=== PATIENT | male | born 1980 | race Caucasian/White ===

== ENCOUNTER 2023-01-21 10:32 | Emergency (ER) | payer OTHER ==
[~2023-01-21] VITALS: Ht 177.8 cm; Wt 170.1 kg
[2023-01-21] MEDS ORDERED: CEPHALEXIN500 M1 PO (11:44)
== END 2023-01-21 12:12 | disposition home or self-care (01) ==
LOC: ED 10:32
DX: S61.200A Unspecified open wound of right index finger without damage to nail, initial encounter (principal); W27.0XXA Contact with workbench tool, initial encounter; Y93.89 Activity, other specified; Y92.89 Other specified places as the place of occurrence of the external cause; Y99.0 Civilian activity done for income or pay

== ENCOUNTER 2024-07-20 11:26 | Emergency (ER) | payer BC ==
[~2024-07-20] VITALS: Ht 180.3 cm; Wt 164.7 kg
[~2024-07-20 11:26] MED LIST: CEPHALEXIN500 M1 PO
[2024-07-20] MEDS ORDERED: Labetalol Hydrochloride 20 MG/4 ML SYR IV ONE (12:15)
[2024-07-20] MEDS ORDERED: SODIUM CHLORIDE 0.9% 1,000 ML IV ONE (12:15)
[2024-07-20 12:32] LABS: BASO % 0.3 % (0.0-1.0); EOS # 0.5 10*3/uL (0.0-0.4); EOS % 3.9 % (1.0-4.0); HEMATOCRIT 46.6 % (42.0-52.0); MEAN CORPUSCULAR HGB 27.4 pg (27.0-31.0); MEAN CORPUSCULAR HGB CONC 32.2 g/dl (33.0-37.0); MONO # 0.6 10*3/uL (0.1-1.0); MONO % 5.5 % (3.0-9.0); NEUT % 69.9 % (47.0-73.0); PLATELET COUNT AUTOMATED 336 10*3/uL (130-400); RED BLOOD COUNT 5.48 10*6/uL (4.50-5.90); RED CELL DISTRI WIDTH 12.8 % (0-14.5); WHITE BLOOD COUNT 11.4 10*3/uL (4.8-10.8)
[2024-07-20 12:49] LABS: BUN 17 mg/dl (9-23); CHLORIDE 105 mmol/L (98-107)
[2024-07-20] MEDS ORDERED: amLODIPine besylate 10 MG TAB PO ONE ×2 (13:00→13:30)
[2024-07-20] MEDS ORDERED: NORVASC10 MG PO (13:35)
== END 2024-07-20 14:05 | disposition home or self-care (01) ==
LOC: ED 11:26
PROVIDERS: Emergency Medicine
DX: I16.0 Hypertensive urgency (principal); R42 Dizziness and giddiness

== ENCOUNTER 2024-12-21 16:06 | Emergency (ER) | payer BC ==
[~2024-12-21] VITALS: Ht 180.3 cm; Wt 174.4 kg
[~2024-12-21 16:06] MED LIST changes: +NORVASC10 MG PO
[2024-12-21] MEDS ORDERED: Labetalol Hydrochloride 20 MG/4 ML SYR IV ONE (16:40)
[2024-12-21 16:55] LABS: BASO % 0.3 % (0.0-1.0); EOS # 0.4 10*3/uL (0.0-0.4); EOS % 4.5 % (1.0-4.0); HEMATOCRIT 43.5 % (42.0-52.0); MEAN CELL VOLUME 83.3 fl (80.0-94.0); MEAN CORPUSCULAR HGB 27.2 pg (27.0-31.0); MEAN CORPUSCULAR HGB CONC 32.6 g/dl (33.0-37.0); MEAN PLATELET VOLUME 9.5 fl (9.6-12.3); MONO # 0.5 10*3/uL (0.1-1.0); MONO % 5.3 % (3.0-9.0); NEUT % 72.8 % (47.0-73.0); PLATELET COUNT AUTOMATED 283 10*3/uL (130-400); RED BLOOD COUNT 5.22 10*6/uL (4.50-5.90); RED CELL DISTRI WIDTH 13.3 % (0-14.5); WHITE BLOOD COUNT 9.6 10*3/uL (4.8-10.8)
[2024-12-21 17:14] LABS: ACT PARTIAL THROMBO TIME 26.2 SECONDS (20.0-32.1)
[2024-12-21 17:18] LABS: ALKALINE PHOSPHATASE 60 U/L (46-116); BUN 16 mg/dl (9-23); CHLORIDE 106 mmol/L (98-107); POTASSIUM 3.2 mmol/L (3.4-5.1); SGPT/ALT 20 U/L (5-49); TOTAL PROTEIN 7.1 gm/dL (6.0-8.0)
[2024-12-21 17:20] LABS: ETHYL ALCOHOL < 3.0 mg/dl (<3)
[2024-12-21] MEDS ORDERED: Dexamethasone Sodium Phospha 20 MG/5 ML VIAL IV ONE (18:10)
[2024-12-21] MEDS ORDERED: LEVETIRACETAM IN NACL (ISO-OS) 100 ML IV ONE (18:55)
[2024-12-21 19:40] LABS: URINE AMPHETAMINES Negative (1000ng/ml); URINE BARBITURATES Negative (200ng/ml); URINE BENZODIAZEPINES Negative (200ng/ml); URINE CANNABINOIDS (THC) Negative (50ng/ml); URINE COCAINE Negative (300ng/ml); URINE METHADONE Negative (300ng/ml); URINE OPIATES Negative (300ng/ml); URINE PHENCYCLIDINE Negative (25ng/ml)
== END 2024-12-21 21:17 | disposition short-term general hospital (02) ==
LOC: ED 16:06
PROVIDERS: Internal Medicine
DX: G93.9 Disorder of brain, unspecified (principal); I16.0 Hypertensive urgency; R47.81 Slurred speech; Z79.899 Other long term (current) drug therapy

== ENCOUNTER 2025-06-07 12:32 | Emergency (ER) | payer BC ==
[~2025-06-07] VITALS: Ht 177.8 cm; Wt 167.8 kg
[2025-06-07] MEDS ORDERED: LISINOPRIL5 MG PO (12:46)
[2025-06-07 14:01] LABS: BILIRUBIN Negative (Negative); BLOOD Negative (Negative); CLARITY Clear (Clear); COLOR Yellow (Yellow); KETONE Negative (Negative); LEUKO ESTERASE Negative (Negative); NITRITE Negative (Negative); PH 5.5 (4.5-8.0); SPECIFIC GRAVITY 1.020 (1.001-1.030); UROBILINOGEN 0.2 E.U./dl (0.0-1.0)
[2025-06-07 14:27] LABS: MUCOUS 1+
[2025-06-07 14:30] LABS: BUN 12 mg/dl (9-23); SGPT/ALT 9 U/L (5-49)
[2025-06-07 14:57] LABS: BASO # 0.0 10*3/uL (0.0-0.1); BASO % 0.3 % (0.0-1.0); EOS # 0.3 10*3/uL (0.0-0.4); EOS % 2.7 % (1.0-4.0); MEAN CELL VOLUME 82.6 fl (80.0-94.0); MEAN CORPUSCULAR HGB 24.2 pg (27.0-31.0); MEAN PLATELET VOLUME 8.1 fl (9.6-12.3); MONO # 0.6 10*3/uL (0.1-1.0); MONO % 5.4 % (3.0-9.0); NEUT # 9.3 10*3/uL (2.3-7.9); NEUT % 78.6 % (47.0-73.0); NUCLEATED RED BLOOD CELL 0.0 % (0.0-0.0); NUCLEATED RED BLOOD CELL 0.0 10*3/uL (0.0-0.0); PLATELET COUNT AUTOMATED 531 10*3/uL (130-400); RED CELL DISTRI WIDTH 14.9 % (0-14.5)
[2025-06-07] MEDS ORDERED: SODIUM CHLORIDE 0.9% 1,000 ML IV ONE (16:05)
[2025-06-07] MEDS ORDERED: Piperacillin Sodium/Tazobact 4.5 GM in SODIUM CHLORIDE 0.9% 100 ML IV ONE (16:15)
== END 2025-06-08 00:40 | disposition short-term general hospital (02) ==
LOC: ED 12:32
PROVIDERS: Emergency Medicine
DX: D73.3 Abscess of spleen (principal); R10.33 Periumbilical pain; L02.211 Cutaneous abscess of abdominal wall; J90 Pleural effusion, not elsewhere classified; K57.32 Diverticulitis of large intestine without perforation or abscess without bleeding; D75.839 Thrombocytosis, unspecified; D32.0 Benign neoplasm of cerebral meninges

== ENCOUNTER 2025-06-21 07:30 | Inpatient (IN) | payer BC ==
[~2025-06-21] VITALS: Ht 177.8 cm; Wt 164.2 kg
[~2025-06-21 07:30] MED LIST changes: +LISINOPRIL5 MG PO
[2025-06-21 07:45] VITALS: BP 153/80
[2025-06-21] MEDS ORDERED: IOHEXOL 350 MG/ML 100 ML VIAL IV ONE (08:05)
[2025-06-21] MEDS ORDERED: SODIUM CHLORIDE 0.9% 1,000 ML IV ONE (08:05)
[2025-06-21] MEDS ORDERED: SODIUM CHLORIDE 0.9% 100 ML BAG IV ONE (08:05)
[2025-06-21 08:30] LABS: BASO # 0.0 10*3/uL (0.0-0.1); BASO % 0.2 % (0.0-1.0); EOS # 0.1 10*3/uL (0.0-0.4); EOS % 0.5 % (1.0-4.0); MEAN CELL VOLUME 80.6 fl (80.0-94.0); MEAN CORPUSCULAR HGB 24.0 pg (27.0-31.0); MEAN PLATELET VOLUME 9.0 fl (9.6-12.3); MONO # 1.0 10*3/uL (0.1-1.0); MONO % 7.8 % (3.0-9.0); NEUT # 10.9 10*3/uL (2.3-7.9); NEUT % 84.8 % (47.0-73.0); NUCLEATED RED BLOOD CELL 0.0 % (0.0-0.0); NUCLEATED RED BLOOD CELL 0.0 10*3/uL (0.0-0.0); PLATELET COUNT AUTOMATED 373 10*3/uL (130-400); RED CELL DISTRI WIDTH 14.9 % (0-14.5)
[2025-06-21 08:51] LABS: BUN 19 mg/dl (9-23); CPK 20 U/L (34-171)
[2025-06-21 10:56] VITALS: BP 130/81
[2025-06-21] MEDS ORDERED: HEPARIN SODIUM 250 ML IV SCH (11:00)
[2025-06-21 11:18] LABS: ACT PARTIAL THROMBO TIME 31.5 SECONDS (20.0-32.1)
[2025-06-21 14:46] VITALS: BP 153/82
[2025-06-21] MEDS ORDERED: Ondansetron Hydrochloride 4 MG/2 ML VIAL IV ONE (16:35)
[2025-06-21 17:04] VITALS: BP 156/91
[2025-06-21] MEDS ORDERED: ACETAMINOPHEN 650 MG SUPP R PRN (18:25)
[2025-06-21] MEDS ORDERED: ACETAMINOPHEN 325 MG TAB PO PRN (18:25)
[2025-06-21] MEDS ORDERED: BISACODYL 5 MG TAB PO PRN (18:25)
[2025-06-21] MEDS ORDERED: Ondansetron Hydrochloride 4 MG/2 ML VIAL IV PRN (18:25)
[2025-06-21] MEDS ORDERED: BISACODYL 10 MG SUPP R PRN (18:25)
[2025-06-21] MEDS ORDERED: DAPTOMYCIN350 MG IV (18:53)
[2025-06-21] MEDS ORDERED: ERTAPENEM1 GM IV (18:54)
[2025-06-21 19:06] VITALS: BP 154/82
[2025-06-21 20:18] VITALS: BP 144/93
== END 2025-06-22 01:20 | disposition short-term general hospital (02) | DRG 176 ==
LOC: ED 07:30 → EDHOLD 18:10
PROVIDERS: Emergency Medicine; ADMIT Internal Medicine; ATTEND Internal Medicine
DX: I26.99 Other pulmonary embolism without acute cor pulmonale (principal); J90 Pleural effusion, not elsewhere classified; J94.2 Hemothorax; D73.3 Abscess of spleen; D64.9 Anemia, unspecified; Z88.8 Allergy status to other drugs, medicaments and biological substances